=== PATIENT | female | born 1990 | race Caucasian/White ===

== ENCOUNTER 2018-12-10 00:18 | Inpatient (IN) ==
[2018-12-10] MEDS ORDERED: CALCIUM CARBONATE 500 MG (TUMS) CHEWABLE TABLET PO PRN ×2 (01:48→23:23)
[2018-12-10] MEDS ORDERED: ONDANSETRON 4 MG/2 ML VIAL IVP PRN ×2 (01:48→23:23)
[2018-12-10] MEDS ORDERED: NALOXONE 0.4 MG/1 ML VIAL IVP PRN (01:48)
[2018-12-10] MEDS ORDERED: diphenhydrAMINE 50 MG/1 ML VIAL IVP PRN (01:48)
[2018-12-10] MEDS ORDERED: CITRIC ACID/SODIUM CITRATE 30 ML CUP PO PRN (01:48)
[2018-12-10] MEDS ORDERED: METHYLERGONOVINE MALEATE 0.2 MG/1 ML VIAL IM PRN (01:48)
[2018-12-10] MEDS ORDERED: TERBUTALINE SULFATE 1 MG/1 ML SDV SUBCUT PRN (01:48)
[2018-12-10] MEDS ORDERED: Phenylephrine Inj 50 MCG in Sodium Chloride 0.9% vial 0.5 ML IVP PRN (01:48)
[2018-12-10] MEDS ORDERED: Metoclopramide Inj 10 MG/2 ML VIAL IV PRN (01:48)
[2018-12-10] MEDS ORDERED: MISOPROSTOL 200 MCG TABLET RECTAL PRN (01:48)
[2018-12-10] MEDS ORDERED: Nalbuphine Inj 20 MG/ML Ampule IVP PRN ×2 (01:48→23:23)
[2018-12-10] MEDS ORDERED: CefOXitin Inj 2 GM in Sodium Chloride 0.9% 100 ML IV PRN (01:48)
[2018-12-10] MEDS ORDERED: Lidocaine 1% 10 MG/ML - 20 ML VIAL SUBCUT PRN (01:48)
[2018-12-10] MEDS ORDERED: FAMOTIDINE 20 MG/2 ML VIAL IVP PRN ×3 (01:48→23:23)
[2018-12-10] MEDS ORDERED: Naloxone Inj 0.01 MG in Sodium Chloride 0.9% vial 1 ML IVP PRN (01:48)
[2018-12-10] MEDS ORDERED: LIDOCAINE HCL 2 % 10 ML JELLY URO-JECT TOPICAL PRN (01:48)
[2018-12-10] MEDS ORDERED: LIDOCAINE W/ SODIUM BICARB 0.5 ML SYR SUBD PRN ×2 (01:48→22:39)
[2018-12-10] MEDS ORDERED: BUTORPHANOL TARTRATE 2 MG/1 ML VIAL IVP PRN ×2 (01:48→23:23)
[2018-12-10] MEDS ORDERED: OXYTOCIN 10 UNIT/1 ML IM PRN (01:48)
[2018-12-10] MEDS ORDERED: Carboprost Inj 250 MCG/ML AMP IM PRN (01:48)
[2018-12-10] MEDS ORDERED: ePHEDrine Inj 50 MG/ML AMP IVP PRN (01:48)
[2018-12-10] MEDS ORDERED: Oxytocin 20 Units + LR 20 UNIT/1,000 ML BAG IV SCH ×3 (02:00→23:23)
[2018-12-10] MEDS: Lactated Ringers-OB Dept 1,000 ML PRIMARY IV SCH ×4 (02:49→18:01)
[2018-12-10 02:50] LABS: Hematocrit [HCT] 39.8 % (37.0-47.0); Hemoglobin [HGB] 13.5 g/dL (12.0-16.0); MEAN CORPUSCULAR HEMOGLOBIN 28.4 PG (27-31); MEAN CORPUSCULAR HGB CONC 33.9 g/dL (33-37); MEAN CORPUSCULAR VOLUME 83.6 FL (81-99); MEAN PLATELET VOLUME 12.1 FL (7.4-12.2); RED BLOOD COUNT 4.76 10^6/uL (4.20-5.40)
--- NOTE | 2018-12-10 08:34 | OB.PROGRES ---
Interval History: The patient is a 28-year-old at 39 2/7 weeks who presented last evening with contractions. The patient did screen positive for group B strep. Otherwise, The patient's has been relatively uneventful. The patient has done well normal blood pressures. She did have decreased movement last week and the patient had a reactive nonstress test and normal LADONNA. The patient travel to [place] around 10 weeks ago to see her who is stationed there in the [employer]. She and her lives in [place], [place] but she moved up or with her parents for the while he was stationed in [place] for 1 year. Past medical history-no hypertension, no diabetes, no asthma. Past surgical history tonsils, adenoids, wisdom teeth extraction. No known drug allergies Tobacco-quit January 2018. Was smoking 3-4 cigarettes per day. No alcohol. No drugs. OB history with one miscarriage. Patient had a positive home test and then had heavy menses. Patient was not seen. Patient does not know blood type. HANGER history with no abnormal Pap smear history. Last Pap was March 2018. Results not known yet. No STI history. No herpes history. Patient was living in [place], [place] and traveled to [facility] in December 2017 with regards to Zika virus. Family history of breast cancer but not first-degree relatives. Objective - Cervical Exam Cervical Exam: 5/95/-2 cephalic. The cervix to stretch to 6 cm. mid position. Minimal blood on my glove digits after exam. [place]: Currently, irregular contractions Heart Rate Interpretation Category: Category I - Labs CBC and BMP: 12/10/18 02:25 - Vital Signs Last Taken Vital Signs: Vital Signs - Last Taken Temperature 97.8 F 12/10/18 06:30 Pulse Rate 85 12/10/18 07:00 Respiratory Rate 16 12/10/18 06:30 Blood Pressure 116/57 12/10/18 06:30 Pulse Ox 98 12/10/18 07:00 Assessment and Plan - Assessment / Plan Additional Assessment/Plan Details: Assessment: IUP 39-2/7 weeks with latent to active labor now Group B strep positive Currently, membranes intact and irregular contractions Plan: Continue observation. The patient may want to walk or use the whirlpool again. The patient does not an epidural currently. The patient would like to walk or bounce on the ball. In a couple hours, I will determine how often she is tasha. Pitocin augmentation is a possibility.
[2018-12-10] MEDS: fentaNYL Inj 100 MCG/2 ML VIAL IV PRN ×2 (09:10→10:26)
--- NOTE | 2018-12-10 12:17 | OB.PROGRES ---
Interval History: The patient is having significant pain with contractions. The patient has received 2 different doses of fentanyl IV. No gush of fluid. The patient's contractions are mainly in her back and her back hurts significantly with contractions. Objective - Cervical Exam Cervical Exam: 5-6/C/-2 cephalic [place]: Irregular contractions Heart Rate Interpretation Category: Category I - Labs CBC and BMP: 12/10/18 02:25 - Vital Signs Last Taken Vital Signs: Vital Signs - Last Taken Temperature 98.0 F 12/10/18 11:00 Pulse Rate 72 12/10/18 11:00 Respiratory Rate 16 12/10/18 11:00 Blood Pressure 115/64 12/10/18 11:00 Pulse Ox 98 12/10/18 11:00 Assessment and Plan - Assessment / Plan Additional Assessment/Plan Details: Assessment: IUP 39-2/7 weeks with minimal change in the patient's cervix since 0500 hrs. this morning. The patient is tasha irregularly every 2-4 and sometimes 5 minutes. The patient has significant pain with contractions. IV fentanyl helped minimally. Group B strep positive receiving IV penicillin prophylaxis Plan: The patient and I discussed AROM. The patient stated that she would like an epidural first and then AROM. AROM and then reevaluate the patient for cervical change. If no change, IUPC and Pitocin. IUPC could be placed initially and I will discuss this with the patient.
[2018-12-10] MEDS ORDERED: LIDOCAINE 2%/ EPI 1:200,000 - 20 ML VIAL ONE (12:24)
[2018-12-10] MEDS ORDERED: Fent/Bupiv 2mcg/0.0625% Epid 250 ML ONE (12:47)
[2018-12-10] MEDS ORDERED: fentaNYL 2 MCG/BUPIVACAINE 0.0625%/NS 0.9% 250 ML BAG EPIDURAL SCH (13:00)
--- NOTE | 2018-12-10 13:00 | CRNA.PROCE ---
Central Neuraxis Block Placemt - - Safety Measures: Time Out Taken - - Type of Block: Epidural Reason for Block: Analgesia Moniters Used During Block: SPO2, NIBP Positioning: Sitting Skin Prep Used: ChloroPrep Draped: Yes Skin Infiltration - Enter Amount Used in Comment Field: 1% Xylocaine (mL): Yes (skinwheal) Spinal Needle Used: 18 Hustead 80 mm Local Anesthetic - Enter Amount Used in Comment Field: 1.5 % Xylocaine with Epinephrine 1:200,000 (mL): Yes (5ml) Number of Centimeters Catheter Threaded: 4 Bioclusive Dressing Applied: Yes Anesthesia Time - Other Weight: 105.959 kg Height: 5 ft 7 in Body Mass Index (BMI): 36.6
--- NOTE | 2018-12-10 13:00 | CRNA.PROGR ---
Anesthesia Time - Procedure/Recovery Time Start Date: 12/10/18 End Date: 12/10/18 Anesthesia : Time In: 13:15 Anesthesia : Time Out: 21:13 Anesthesia : Total Time: 478 - Total Anesthesia Time Total Anesthesia Time (minutes): 478 - Other Weight: 105.959 kg Height: 5 ft 7 in Body Mass Index (BMI): 36.6 Physical Status: P2 Anesthesia Type: Epidural Obstetrics: Planned vaginal delivery w/ neuraxial labor anesthesia/analog
--- NOTE | 2018-12-10 13:29 | OB.PROGRES ---
Interval History: Patient received her epidural and feels much less discomfort now with contractions. Objective - Cervical Exam Cervical Exam: 6/c/-2 [place]: Contractions were every 3 or so minutes after repositioning the toco Heart Rate Interpretation Category: Category I - Labs CBC and BMP: 12/10/18 02:25 - Vital Signs Last Taken Vital Signs: Vital Signs - Last Taken Temperature 98.0 F 12/10/18 11:00 Pulse Rate 72 12/10/18 11:00 Respiratory Rate 16 12/10/18 11:00 Blood Pressure 115/64 12/10/18 11:00 Pulse Ox 98 12/10/18 11:00 Assessment and Plan - Assessment / Plan Additional Assessment/Plan Details: IUP 39-2/7 weeks with GBS positive. AROM with clear fluid. IUPC placed. No evidence of any obligations with IUPC being placed. Plan: Evaluate [place] units. Pitocin augmentation if MVU less than 200 Continue IV penicillin for GBS prophylaxis
--- NOTE | 2018-12-10 17:27 | OB.PROGRES ---
Interval History: I saw the patient at 4 PM or 1600 hrs. The patient was comfortable. Objective - Cervical Exam Cervical Exam: 7-8 cm/complete/-1 station at 4 PM or 1600 hrs. [place]: 180 [place] units with contractions every 3 minutes or so on 3 milliunits of Pitocin Heart Rate Interpretation Category: Category I - Labs CBC and BMP: 12/10/18 02:25 - Vital Signs Last Taken Vital Signs: Vital Signs - Last Taken Temperature 97.8 F 12/10/18 16:00 Pulse Rate 70 12/10/18 17:00 Respiratory Rate 18 12/10/18 17:00 Blood Pressure 131/73 12/10/18 17:00 Pulse Ox 98 12/10/18 17:00 Assessment and Plan - Assessment / Plan Additional Assessment/Plan Details: Assessment: IUP 39-2/7 weeks with active labor AROM with clear fluid Group B strep positive Patient with Pitocin augmentation and IUPC showing 180 [place] units. Plan: Pitocin was increased to 4 milliunits The patient will be rechecked around 1800 hrs. or 6 PM.
--- NOTE | 2018-12-10 17:57 | OB.PROGRES ---
Interval History: The patient is starting to feel some pelvic pressure. Her epidural is working very well. She has slept. Objective - Cervical Exam Cervical Exam: C/C/0 to +1 cephalic and OT Heart Rate Interpretation Category: Category I - Labs CBC and BMP: 12/10/18 02:25 - Vital Signs Last Taken Vital Signs: Vital Signs - Last Taken Temperature 97.8 F 12/10/18 16:00 Pulse Rate 70 12/10/18 17:00 Respiratory Rate 18 12/10/18 17:00 Blood Pressure 131/73 12/10/18 17:00 Pulse Ox 98 12/10/18 17:00 Assessment and Plan - Assessment / Plan Additional Assessment/Plan Details: Assessment: IUP 39-2/7 weeks with positive cervical change The patient's cervix is complete and head at +1 station and OT currently GBS positive Plan: After the nurses give report, the next nursing shift will start teaching the patient how to push secondary to the second stage of labor now. Continue penicillin every 4 hours Continue close observation
--- NOTE | 2018-12-10 20:44 | OB.OP.NOTE ---
Operative Report Surgeon: Edy Airbrush Artist Photography: Angel Lam MD Anesthesia Type: Regional (With Duramorph) Anesthesia Provider: Jim Smith CRNA Surgery Date: 12/10/18 Preoperative Diagnosis: IUP IUP 39-2/7 weeks, active labor, arrest of descent, OP Postoperative Diagnosis: Same. Initially left occiput transverse and then after delivery of head the baby's head and neck corrected to the right occiput transverse presentation. Baby's head was mildly asynclitic in the patient's pelvis. This is most likely the reason that the baby was not able to deliver vaginally secondary to the position of the baby's head. Procedure: Primary low transverse section Estimated Blood Loss (mL): 600 Fluids: 900 mL LR. Mefoxin 2 g IV preoperatively. Azithromycin 500 mg IV after cord clamp. Pitocin. Cytotec 800 g per rectum-4 200 g tablets placed rectally Complications: There was some hematuria noticed when the patient's Hooper catheter was replaced prior to the surgery. The patient had a Hooper catheter during the first stage of her labor but the Hooper catheter was removed during the second stage of her labor when she was pushing. When the Hooper catheter was replaced prior to the surgery, there was some hematuria noted. After completion of the surgery, the patient's urine was a light red color. Findings at Surgery: Normal uterus, fallopian tubes, ovaries Initially, the baby's presentation at the time of delivery was left occiput transverse. After delivery of the babies head, the baby's head corrected itself to the right occiput transverse presentation. The baby's head appeared to be in a slightly asynclitic presentation. There was a lower uterine segment extension on the patient's right side and right angle. This was repaired with 0 Vicryl suture. The bladder was just inferior to the extension. It was difficult to determine if a small section of bladder was incorporated in the right angle suture complex secondary to the extension. I do not believe the bladder was incorporated into the angle closure with 0 Vicryl suture but I will continue to evaluate the patient's hematuria. I will also check a CBC and a CMP on postop day 1 and postoperative day 2. The patient's mild hematuria will be continued to be assessed. ABG showed a pH of 7.38, PCO2 of 33, HCO3 of 20, base excess of -5. Findings were a female infant with weight of 7 lbs. 10 oz. Apgars were 8 and 9. Indications for the Procedure: Assessment: IUP 39-2/7 weeks with arrest of descent. The patient has been pushing for 2-1/2 hours and the heart rate tracing is now category 2 tracing. The nursing contact me hoping that a vacuum assist vaginal delivery could be completed. However, the baby may be in the OP or OT presentation. There is room posteriorly and with the edema, I cannot definitely determine the position. Therefore, I am not comfortable with the vacuum assist delivery. The patient does have a good expulsive effort: The patient is not pushing, the baby's head readily ascends to 0 station with gentle pressure. Group B strep positive-the patient has been receiving IV penicillin prophylaxis. Plan: I discussed the issues with the patient and the fact that the baby's head maybe in a malpresentation and I'm not comfortable using a vacuum assist for a possible vaginal delivery since I cannot determine the exact position of the baby's head. I discussed that I was more comfortable with the section. We did discuss the risk of infection, bleeding, pain, postoperative hemorrhage, blood transfusion with associated risks, damage to bowel, bladder, nerve, vessel, nicking the baby, blood clots to the legs or lungs, risk of anesthesia, the low risk of and other possible risks not discussed. The consent form was signed. Questions were answered. The operating room crew was called in. Description of Procedure: The patient was taken to the operating room after the risks, benefits, alternatives and indications of a primary section were discussed with the patient in detail. Consent forms were signed previously. The risk, but not limited to, of infection, bleeding, pain postoperatively or intraoperatively, bleeding, hemorrhage requiring blood transfusion with associated risks, hysterectomy secondary to hemorrhage or infection postoperatively, damage to bowel, bladder, nerve, vessel, ureter, nicking the baby, serious infection requiring antibiotics postoperatively. Additionally, blood clots to the legs or lungs and the low risk of was discussed with the patient. The patient expressed understanding with the above. Consent forms have been signed previously. The patient underwent dosing of her epidural anesthesia in the usual fashion.Duramorph was placed postoperatively. heart tones were checked and they were normal. The patient was placed in the yellowfin stirrups secondary to arrest of dissent and the possibility of having a nurse push from below to deliver the baby's head. The patient was prepped. Hooper catheter was placed. The patient was then draped sterilely. The patient was tested and anesthesia was found to be adequate. A Pfannenstiel skin incision was made about 2 cm above the symphysis pubis. The subcutaneous tissue was bovied to the fascia. The fascia was nicked in the midline and extended laterally bilaterally using the Yankauer retractor to elevate the fascia off of the rectus muscles. Cynthia clamps were then placed on either side of the midline on the fascia superiorly and the rectus muscles were dissected off of the fascia using the Bovie and bluntly. The same was done for the fascia inferiorly. The rectus muscles were gently . The peritoneum was then entered bluntly. The peritoneum was then stretched. I then placed my hand intra- abdominally to check for adhesions between the uterus and the anterior abdominal wall and there were none. The Frank retractor was then placed. The lower uterine segment of the uterus was then evaluated. Bladder was identified. It was inferior to my incision site. A low transverse uterine incision was then made and this was superior to the bladder.Upon entering the uterus, there was still clear amniotic fluid. The lo wer uterine segment was then stretched. I then placed my hand intrauterine along the baby's head until I got to the vertex of the baby's head. The baby palpated to be in the LOT position.The baby's head was low in the pelvis but I was able to place my hand was around the baby's head and gently release the suction and then the baby's head was elevated gently out of the uterine incision. The baby was initially in the left occiput transverse or LOT position. When the baby's head was delivered, the baby's head corrected itself to the right occiput transverse or are OT presentation. The mouth and nose were bulb suctioned. The baby's head appeared to be slightly in an asynclitic presentation in the left occiput transverse position during the second stage of labor and at the time of section. This is most likely the reason that the baby was not able to deliver vaginally. The posterior shoulder and then anterior shoulder were delivered atraumatically and then the baby was slowly delivered atraumatically through the uterine incision. The mouth and nose were bulb suctioned after delivery of the . Delayed cord clamping was allowed for for greater than 30 seconds. The cord was then clamped and cut and the baby was handed off to the waiting nurses and metal pourer. A section of cord was then clamped and cut for cord gases and then cord blood was obtained. The placenta was then delivered with manual retraction. Membranes were teased and removed. The uterus was then exteriorized. Gloves were removed and new sterile gloves were placed. I used a lap sponge to clear any clot or debris or membranes or placenta from the intrauterine cavity 3 different times. There was good hemostasis. The uterine incision was then examined. There appeared to be a small to moderate extension on the patient's right angle of the uterine incision. Ring forceps were used to grasp the inferior and superior aspects of the uterine incision and extension. 0 Vicryl suture was then used to close the angle. At all times we kept an eye on the location of the bladder. Since the extension abutted the bladder, it was difficult to assess if the bladder was completely free of the sutured angle. I do not believe that the bladder was incorporated in the angle suture. The uterus incision was then closed with 0 Vicryl in a running locking fashion from the right angle to the midline. Attention was then turned to the left side of the uterine incision. There was noted to be a small extension superiorly on the left side but not into the contractile part of the uterus. This extension was closed with 0 Vicryl suture in a running locking fashion. This was continued until it met with the suture from the right sided closure. The uterine incision was closed and intact. There was good hemostasis. 0 Vicryl suture was used to imbricate but I did not imbricate towards the right angle because there was good hemostasis and the close proximity of the bladder. A few areas were bovied for hemostasis away from the suture. The fallopian tubes and ovaries were then examined and appeared normal. Attention was then turned to the patient's uterine incision again and there was excellent hemostasis. Irrigation posterior to the uterus and then was suctioned. The uterus was then placed back into the abdomen. The patient's right paracolic gutter was then irrigated and suctioned. Good hemostasis noted. The patient's left paracolic gutter was then irrigated and suctioned. Good hemostasis. The uterine incision was then examined again and irrigated. There appeared to be good hemostasis. The Frank retractor was then removed. The peritoneum was then identified and closed from cephalad to caudal with 3-0 Vicryl suture in a running fashion. Lap count was correct at this time. The patient's fascia was then examined. Subfascially there was good hemostasis. The fascia was then closed with looped 0 PDS suture. I started on the patient's left angle of the fascia. Care was taken to incorporate both layers of fascia at the angle. Then the fascia was closed in a running suture to the right angle. A Cynthia clamp was previously placed on the right angle of the fascia. The 0 PDS suture was placed just past the Cynthia clamp. One section of suture was cut and then the looped 0 PDS suture was placed through the fascia to the inferior side of the fascial incision and then the needle was cut and then the 2 ends of the suture were tied at least 8 times to ensure integrity. The fascia appeared intact. The subcutaneous tissue was then examined and there were a few bleeders that were bovied. The subcutaneous tissue was then irrigated and then suctioned. The subcutaneous tissue was then closed with 3-0 Vicryl suture in a running fashion. The skin was then examined and a few areas were bovied. The incision was cleaned with a moist lap sponge. The skin was then closed with 3-0 Stratafix suture and a subcuticular fashion starting in the midline and working towards the left side and right side. The incision appeared to be well approximated. Skin prep and then half-inch Steri-Strips were placed over the incision. Sponge, instrument, and needle count were correct 2 The radiofrequency wand was also used to ensure that the count was correct. Silverlon dressing was placed over the Steri-Stripped incision site and then an ABD pad and then paper tape without stretching the paper tape to avoid skin irritation. A vaginal exam was then completed and the uterus was expressed of any clot or debris. There was some dark blood expressed. The patient was cleaned of any clot or debris. Hooper catheter was secured. There was noted to be a red tinge in the patient's urine. This will be followed. The patient was then brought to the PACU in stable condition. Plan: The patient and her baby will recover in a room. Hooper catheter will be continued until the patient's urine clears. If the urine does not clear, I will consult urology. I will also check a comprehensive metabolic panel as well as a CBC in the morning and then on postop day 2 also.
--- NOTE | 2018-12-10 20:50 | OB.PROGRES ---
Interval History: The patient has been pushing for at least 2-1/2 hours and is exhausted. Also, the epidural is not helping anymore. Objective - Cervical Exam Cervical Exam: c/c/+2 with pushing. +1 to +2 without pushing. The patient has a good expulsive effort with pushing Heart Rate Interpretation Category: Category II (Decreased accelerations but still present. Decreased variability.) - Labs CBC and BMP: 12/10/18 02:25 - Vital Signs Last Taken Vital Signs: Vital Signs - Last Taken Temperature 98.4 F 12/10/18 18:15 Pulse Rate 90 12/10/18 18:00 Respiratory Rate 18 12/10/18 18:00 Blood Pressure 128/71 12/10/18 18:00 Pulse Ox 98 12/10/18 18:00 Assessment and Plan - Assessment / Plan Additional Assessment/Plan Details: Assessment: IUP 39-2/7 weeks with arrest of descent. The patient has been pushing for 2-1/2 hours and the heart rate tracing is now category 2 tracing. The nursing contact me hoping that a vacuum assist vaginal delivery could be completed. However, the baby may be in the OP or OT presentation. There is room posteriorly and with the edema, I cannot definitely determine the position. Therefore, I am not comfortable with the vacuum assist delivery. The patient does have a good expulsive effort: The patient is not pushing, the baby's head readily ascends to 0 station with gentle pressure. Group B strep positive-the patient has been receiving IV penicillin prophylaxis. Plan: I discussed the issues with the patient and the fact that the baby's head maybe in a malpresentation and I'm not comfortable using a vacuum assist for a possible vaginal delivery since I cannot determine the exact position of the baby's head. I discussed that I was more comfortable with the section. We did discuss the risk of infection, bleeding, pain, postoperative hemorrhage, blood transfusion with associated risks, damage to bowel, bladder, nerve, vessel, nicking the baby, blood clots to the legs or lungs, risk of anesthesia, the low risk of and other possible risks not discussed. The consent form was signed. Questions were answered. The operating room crew was called in.
[2018-12-10] MEDS ORDERED: ePHEDrine Inj 50 MG/ML AMP ONE (20:52)
[2018-12-10] MEDS ORDERED: LIDOCAINE MPF 2% - 5 ML (20 MG/1 ML) ONE ×2 (20:52→21:24)
[2018-12-10] MEDS ORDERED: Chloroprocaine 3% MPF (30mg/ml) 20ml vial ONE (21:01)
[2018-12-10] MEDS ORDERED: AZITHROMYCIN 500 MG VIAL IV ONE (21:08)
[2018-12-10] MEDS ORDERED: ONDANSETRON 4 MG/2 ML VIAL ONE (21:37)
[2018-12-10] MEDS ORDERED: Lactated Ringers 1,000 ML PRIMARY IV ONE (21:41)
[2018-12-10] MEDS ORDERED: MORPHINE SULFATE/PF 10 MG/10 ML AMPULE ONE (21:52)
[2018-12-10] MEDS ORDERED: KETOROLAC 30 MG/1 ML VIAL ONE (21:57)
[2018-12-10] MEDS ORDERED: MISOPROSTOL 200 MCG TABLET ONE (22:29)
[2018-12-10] MEDS ORDERED: HYDROmorphone 2 MG/1 ML IVP PRN (22:39)
[2018-12-10] MEDS ORDERED: Acetaminophen 1000mg Inj 1,000 MG/100 ML VIAL IV ONE (22:39)
--- NOTE | 2018-12-10 22:41 | CRNA.PROGR ---
Anesthesia Time - Procedure/Recovery Time Start Date: 12/10/18 End Date: 12/10/18 Anesthesia : Time In: 21:14 Anesthesia : Time Out: 22:40 Anesthesia : Total Time: 86 - Total Anesthesia Time Total Anesthesia Time (minutes): 86 - Other Weight: 105.959 kg Height: 5 ft 7 in Body Mass Index (BMI): 36.6 Physical Status: P2 Anesthesia Type: Epidural (existing labor epidural) Obstetrics: C/S with anesthesia/analog following neuraxial labor
--- NOTE | 2018-12-10 22:42 | CRNA.PROGR ---
Anesthesia Recovery Phase I - Post Anesthesia Evaluation Patient's Condition on Arrival in Phase I: Stable Pain Level: 3
[2018-12-10] MEDS ORDERED: MISOPROSTOL 200 MCG TABLET RECTAL ONE (23:14)
[2018-12-10] MEDS ORDERED: diphenhydrAMINE 25 MG CAPSULE PO PRN (23:23)
[2018-12-10] MEDS ORDERED: diphenhydrAMINE 50 MG/1 ML VIAL IV PRN (23:23)
[2018-12-10] MEDS ORDERED: DIPH,PERTUSS,TET(ADACEL) VAC/PF 0.5 ML (Tdap) IM ONE (23:23)
[2018-12-10] MEDS ORDERED: LANOLIN HPA 40 GM TUBE TOPICAL PRN (23:23)
[2018-12-10] MEDS ORDERED: Naloxone Inj 0.01 MG, Sodium Chloride 0.9% vial 1 ML IVP PRN ×2 (23:23)
[2018-12-11] MEDS: D5-LR 1,000 ML PRIMARY IV SCH ×2 (02:16→16:59)
[2018-12-11] MEDS: KETOROLAC 15 MG/1 ML VIAL IVP SCH ×4 (03:08→20:47)
[2018-12-11 05:52] LABS: Hematocrit [HCT] 34.5 % (37.0-47.0); Hemoglobin [HGB] 11.5 g/dL (12.0-16.0); MEAN CORPUSCULAR HEMOGLOBIN 28.4 PG (27-31); MEAN CORPUSCULAR HGB CONC 33.3 g/dL (33-37); MEAN CORPUSCULAR VOLUME 85.2 FL (81-99); MEAN PLATELET VOLUME 11.9 FL (7.4-12.2); RED BLOOD COUNT 4.05 10^6/uL (4.20-5.40)
[2018-12-11 05:58] LABS: BLOOD UREA NITROGEN 5 mg/dL (7-22); SERUM ALBUMIN 2.6 g/dL (3.5-4.8)
[2018-12-11] MEDS: oxyCODONE-ACETAMINOPHEN 5-325 TAB PO PRN ×3 (06:43→23:40)
[2018-12-11] MEDS: Prenatal Multivitamin Tab 1 TAB TAB PO SCH (09:32)
[2018-12-11] MEDS: DOCUSATE 100 MG CAPSULE PO SCH ×2 (09:32→20:52)
--- NOTE | 2018-12-11 12:01 | CRNA.PROGR ---
Anesthesia Note - Progress Notes Anesthesia Progress Note: Post OP Anesthesia Note Pt is sitting up at the bedside. She has been up ambulating, has been tolerating a reg diet. She states that her pain is well under control. She denies ny residual problems of the epidural anesthetic. Current VS are stable. Vital Signs - Last Taken Temperature 98.5 F 12/11/18 09:00 Pulse Rate 62 12/11/18 09:00 Respiratory Rate 18 12/11/18 09:00 Blood Pressure 98/65 12/11/18 09:00 Pulse Ox 93 12/11/18 09:00
--- NOTE | 2018-12-11 12:33 | OB.PROGRES ---
Subjective Post Day: 1 Pain Management: IV Toradol Hooper Catheter: Yes Flatus: No Lochia Color: Serosa/Brown Scant < 10 ml Diet: Regular [place] Feeding Method: Exculsively Ambulating: Yes Concerns / Additional Information: The patient has ambulated a little bit in her room. She still has her Hooper catheter in. She did get to sleep this morning for a couple hours but would like to take another nap now after eating lunch. I stopped in earlier but she was sleeping. The patient states that she passed some gas last night but none this morning. Patient states that she has some discomfort but her pain is controlled. Patient would like her Hooper catheter removed after she naps. Objective - General General Appearance: POSITIVE: No Acute Distress, Cooperative - Cardiovacular Cardiovascular Exam: POSITIVE: RRR Edema: +1 Pedal Edema Extremities: Negative Patricia's - Bilaterally - Respiratory Respiratory Exam: POSITIVE: Clear to Auscultation - Bilaterally - Abdomen Bowel Sounds: Present, Hypoactive Abdominal Wound Assessment: Silverlone Dressing, Well Approximated Other Abdominal Exam Details: Soft, appropriately tender. No guarding or rebound Assesstment / Plan Assessment / Plan: Assessment: Postoperative day #1 status post primary low transverse section. The patient's H&H is good this morning. White count is minimally elevated at 16,000 which is normal after her delivery. Serum creatinine was normal at 0.5. The patient's urine is no longer red tinged but is yellow. Plan: Continue observation Hooper will be discontinued after the patient. The patient and I discussed 1 more dose of IV antibiotics since the patient had arrest of descent and the baby's head was low in the patient's vagina and I had to deliver the baby's head up through the vagina and through the uterus and through the abdomen. This dose would be a prophylactic dose and not treating a specific infection. Ertapenem 1 g IV. This will be administered this afternoon.
[2018-12-11] MEDS ORDERED: Ertapenem Inj 1 GM in Sodium Chloride 0.9% 100 ML IV SCH (13:00)
[2018-12-12] MEDS: D5-LR 1,000 ML PRIMARY IV SCH ×2 (00:31→07:35)
[2018-12-12] MEDS: IBUPROFEN 800 MG TABLET PO SCH ×3 (03:02→20:14)
[2018-12-12] MEDS: oxyCODONE-ACETAMINOPHEN 5-325 TAB PO PRN (03:33)
[2018-12-12] MEDS: KETOROLAC 15 MG/1 ML VIAL IVP SCH ×4 (04:35→07:36)
[2018-12-12] MEDS: DOCUSATE 100 MG CAPSULE PO SCH ×2 (09:42→20:15)
[2018-12-12] MEDS: Prenatal Multivitamin Tab 1 TAB TAB PO SCH (09:42)
--- NOTE | 2018-12-12 10:57 | OB.PROGRES ---
Subjective Post Day: 2 Pain Management: PO Hooper Catheter: No Flatus: Yes Lochia Color: Serosa/Brown Scant < 10 ml Diet: Regular [place] Feeding Method: / Bottle Ambulating: Yes Concerns / Additional Information: The patient states that she feels better than yesterday. She has been ambulating. No shortness of breath. Objective - General General Appearance: POSITIVE: No Acute Distress, Cooperative - Cardiovacular Cardiovascular Exam: POSITIVE: RRR Edema: +1 Pedal Edema Extremities: Negative Patricia's - Bilaterally - Respiratory Respiratory Exam: POSITIVE: Clear to Auscultation - Bilaterally - Abdomen Bowel Sounds: Present Abdominal Wound Assessment: Silverlone Dressing Other Abdominal Exam Details: Abdomen is soft, appropriately tender. No guarding or rebound Assesstment / Plan Assessment / Plan: Assessment: Postoperative day #2 status post primary low transverse section Vital signs normal. Patient doing well. Plan: Since the patient had surgery on December 10 late in the evening, I would like to check another CBC and I would check a BMP to check her creatinine. The patient will ambulate at least 4 times today. Continue care The patient will not be discharged today. If, the patient is doing well, the patient will be discharged tomorrow
[2018-12-12 14:39] LABS: Hematocrit [HCT] 35.3 % (37.0-47.0); Hemoglobin [HGB] 11.5 g/dL (12.0-16.0); MEAN CORPUSCULAR HEMOGLOBIN 28.1 PG (27-31); MEAN CORPUSCULAR HGB CONC 32.6 g/dL (33-37); MEAN CORPUSCULAR VOLUME 86.3 FL (81-99); MEAN PLATELET VOLUME 12.4 FL (7.4-12.2); RED BLOOD COUNT 4.09 10^6/uL (4.20-5.40)
[2018-12-12 14:40] LABS: BLOOD UREA NITROGEN 10 mg/dL (7-22)
[2018-12-12 15:01] LABS: BAND NEUTROPHILS % 1 % (0-10); BASOPHILS % (MANUAL) 0 % (0-1); EOSINOPHILS % (MANUAL) 2 % (0-8); MONOCYTES % (MANUAL) 3 % (0-12); NEUTROPHILS % (MANUAL) 81 % (50-80); PLATELET MORPHOLOGY COMMENT NORMAL MORPHOLOGY (NORM); RBC MORPHOLOGY COMMENT NORMAL MORPHOLOGY (NORM); WBC MORPHOLOGY COMMENT NORMAL MORPHOLOGY (NORM)
[2018-12-13] MEDS: IBUPROFEN 800 MG TABLET PO SCH ×3 (03:03→18:48)
[2018-12-13] MEDS: Prenatal Multivitamin Tab 1 TAB TAB PO SCH (09:32)
[2018-12-13] MEDS: DOCUSATE 100 MG CAPSULE PO SCH ×2 (09:32→21:11)
--- NOTE | 2018-12-13 10:24 | OB.PROGRES ---
Subjective Post Day: 3 Pain Management: PO (The oxycodone has been too strong for the patient. The patient would like to try hydrocodone) Hooper Catheter: No Flatus: Yes Lochia Color: Serosa/Brown Scant < 10 ml Diet: Regular Feeding Method: / Bottle Ambulating: Yes Concerns / Additional Information: The patient's baby has to be under the bili light secondary to the baby's bilirubin. The baby will stay until tomorrow. The patient has been a little bit more cheerful. The patient believes that this is normal. The patient does admit that she is having some mood swings and she misses her who is flying into the [employer] from [place] tomorrow. He will get here in [place] on Monday most likely. Objective - General General Appearance: POSITIVE: No Acute Distress, Cooperative - Cardiovacular Cardiovascular Exam: POSITIVE: RRR Edema: +1 Pedal Edema Extremities: Negative Patricia's - Bilaterally - Respiratory Respiratory Exam: POSITIVE: Clear to Auscultation - Bilaterally - Abdomen Bowel Sounds: Present Abdominal Wound Assessment: Silverlone Dressing - Fundus/Lochia/Perineum Uterus Consistency: Firm Assesstment / Plan Assessment / Plan: Assessment: Postoperative day #3 status post primary low transverse section. The patient has been afebrile. The patient's labs yesterday were good. H&H good. Creatinine was 0.4. The patient's baby has increased bilirubin and will be under the bili lights. The baby will stay until tomorrow. Therefore, the patient will most likely stay in the hospital until tomorrow. Plan: Continue care The plan is to discharge the patient tomorrow doing well. Discharge medications: Ibuprofen 800 mg 1 tablet by mouth 3 times a day with food or milk for 5 days then 3 times a day as needed Ferrous sulfate 325 mg tablet 1 tablet by mouth daily #30 and no refill Colace 100 mg capsule 1 capsule by mouth daily to twice a day when necessary constipation Hydrocodone/Tylenol 5/325 one half tablet to one tablet to 2 tablets by mouth every 6 hours when necessary pain Pelvic rest for 6 weeks to allow for healing. Contraception will be discussed over the next couple weeks. The patient needs to follow-up with me in one week and then 1 week after that. depression and blues will be discussed again before discharge by the nurse and myself. If the patient starts feeling more depressed or if her family members believe that she is more depressed, they should notify labor and delivery immediately. If the patient is significantly depressed, patient should go to the emergency room. I did offer the patient an SSRI for depression. The patient said that she would consider this. Sertraline would be prescribed. Initially 25 mg for 1 week and then 50 mg for 4 weeks and the patient would be evaluated. Usual postoperative instructions. The patient should return for fever, increasing abdominal pain, wound drainage or not feeling well. Medications will be sent to her pharmacy in [place], [place]
[2018-12-13] MEDS ORDERED: HYDROcodone-APAP 5 MG -325 MG TABLET PO PRN (12:20)
[2018-12-14] MEDS: IBUPROFEN 800 MG TABLET PO SCH ×2 (04:02→10:00)
--- NOTE | 2018-12-14 08:55 | OB.PROGRES ---
Subjective Post Day: 4 Pain Management: PO Hooper Catheter: No Flatus: Yes Lochia Color: Serosa/Brown Scant < 10 ml Diet: Regular [place] Feeding Method: / Bottle Ambulating: Yes Concerns / Additional Information: The patient states that her baby is doing much better and she is ready to go home. Hopefully her baby will be discharged. Objective - General General Appearance: POSITIVE: No Acute Distress, Cooperative - Cardiovacular Cardiovascular Exam: POSITIVE: RRR Edema: +1 Pedal Edema Extremities: Negative Patricia's - Bilaterally - Respiratory Respiratory Exam: POSITIVE: Clear to Auscultation - Bilaterally - Abdomen Bowel Sounds: Present Assesstment / Plan Assessment / Plan: Assessment: Postoperative day #4 status post primary low transverse section. Patient has been afebrile and her vital signs of been normal. The patient's baby is doing better and hopefully will be discharged. Plan: Discharge today Discharge meds were written for. Please see the discharge plan. Postoperative instructions were given. Usual precautions to return for.
--- NOTE | 2018-12-14 09:05 | DCSUMMARY ---
Hospitalization Summary Admit Date: 12/09/18 Discharge Date: 12/14/18 Primary Diagnosis:: IUP 39-2/7 weeks with active labor, Secondary Diagnosis:: Group B strep Arrest of descent Left occiput transverse head with asynclitic presentation Primary Surgery and Date: Primary low transverse section on 12/10/2018. Artificial rupture membranes. Intrauterine pressure catheter. Pitocin augmentation. IV penicillin GBS prophylaxis Delivery Type: Hospital Course: Assessment: Postoperative day #4 status post primary low transverse section. The patient has been afebrile. The patient's labs yesterday were good. H&H good. Creatinine was 0.4. The patient's baby has increased bilirubin and will be under the bili lights. The baby will stay until tomorrow. Therefore, the patient will most likely stay in the hospital until tomorrow. Plan: Discharge patient Discharge medications: Ibuprofen 800 mg 1 tablet by mouth 3 times a day with food or milk for 5 days then 3 times a day as needed Ferrous sulfate 325 mg tablet 1 tablet by mouth daily #30 and no refill Colace 100 mg capsule 1 capsule by mouth daily to twice a day when necessary constipation Hydrocodone/Tylenol 5/325 one half tablet to one tablet to 2 tablets by mouth every 6 hours when necessary pain Pelvic rest for 6 weeks to allow for healing. Contraception will be discussed over the next couple weeks. The patient needs to follow-up with me in one week and then 1 week after that. depression and blues will be discussed again before discharge by the nurse and myself. If the patient starts feeling more depressed or if her family members believe that she is more depressed, they should notify labor and delivery immediately. If the patient is significantly depressed, patient should go to the emergency room. I did offer the patient an SSRI for depression. The patient said that she would consider this. Sertraline would be prescribed. Initially 25 mg for 1 week and then 50 mg for 4 weeks and the patient would be evaluated. Usual postoperative instructions. The patient should return for fever, increasing abdominal pain, wound drainage or not feeling well. Medications will be sent to her pharmacy in [place], [place] The patient should follow-up on December 18 with an appointment at 1345 hrs. Please show at 1330 hrs. The patient should also schedule a follow-up appointment for the following week to see me. This has not been scheduled yet. Complications: The did have elevated bilirubin and was under the bili lights. Exam - Vitals Vital Signs: Vital Signs Temperature 97.5 F Temperature Source Oral Pulse Rate [Pulse Oximeter 66 Right] Pulse Rate [Right Hand] 70 Pulse Rate 77 Respiratory Rate 14 Blood Pressure [Left Arm] 114/79 Blood Pressure [Right Arm] 124/76 Blood Pressure 114/73 Pulse Ox [Right Hand] 98 Pulse Ox 93 Oxygen Flow Rate roomair Oxygen Delivery Method [Right Room Air Hand] Oxygen Delivery Method Room Air Height 5 ft 7 in Weight 233 lb 9.6 oz
[2018-12-14] MEDS: DOCUSATE 100 MG CAPSULE PO SCH (09:50)
[2018-12-14] MEDS: Prenatal Multivitamin Tab 1 TAB TAB PO SCH (09:51)
[2018-12-14 10:01] VITALS: TEMP 98.1
[2018-12-14 10:17] VITALS: BP 122/73; RESP 20; O2SAT 97
== END 2018-12-14 12:42 | disposition home or self-care (01) | DRG 787 ==
LOC: OBOP 00:18 → OBIP 01:58
PROVIDERS: ADMIT Obstetrics & Gynecology; ATTEND Obstetrics & Gynecology